=== PATIENT | female | born 1950 ===

== ENCOUNTER 2018-03-14 14:13 | Inpatient (IN) | payer MEDICARE, OTHER ==
[2018-03-14 14:13] VITALS: BMI 26.2
[2018-03-14] MEDS ORDERED: Sodium Chloride 0.9% 1,000 ML IV ONE (14:31)
[2018-03-14 14:45] LABS: BASO # 0.1 K/uL (0.0-0.2); BASO % 1.2 % (0.0-2.0); EOS # 0.1 K/uL (0.0-0.7); EOS % 2.6 % (0.0-4.0); HEMOGLOBIN 13.9 g/dL (11.0-16.0); LYMPH # 2.6 K/uL (1.0-4.3); LYMPH % 52.5 % (20.0-40.0); MEAN CELL VOLUME 92.1 fL (81.0-99.0); MEAN CORPUSCULAR HEMOGLOBIN 31.6 pg (27.0-31.0); MEAN CORPUSCULAR HGB CONC 34.3 g/dL (33.0-37.0); MEAN PLATELET VOLUME 7.8 fL (7.2-11.7); MONO # 0.6 K/uL (0.0-0.8); MONO % 11.5 % (0.0-10.0); NEUT # 1.6 K/uL (1.8-7.0); NEUT % 32.2 % (50.0-75.0); RBC 4.39 Mil/uL (3.80-5.20); WHITE BLOOD COUNT 4.9 K/uL (4.8-10.8)
--- NOTE | 2018-03-14 14:48 | C.PDOC ---
History Of Present Illness 68-year-old female, presents to the emergency department with complaints of dizziness and vomiting today. She denies any chest pain, fever, chills, shortness of breath. No other complaints at this time. Time Seen by Provider: 03/14/18 14:24 Chief Complaint (Nursing): Dizziness/Lightheaded History Per: Patient History/Exam Limitations: no limitations Current Symptoms Are (Timing): Still Present Seizure Or Post-ictal Symptoms: None Possible Causative Factor(s): Vertigo Severity: Mild Past Medical History Reviewed: Historical Data, Nursing Documentation, Vital Signs Vital Signs: Last Vital Signs Temp 97.6 F 03/14/18 17:04 Pulse 108 H 03/14/18 17:04 Resp 20 03/14/18 17:04 BP 137/87 03/14/18 17:04 Pulse Ox 98 03/14/18 17:04 - Medical History PMH: Gastritis, HTN Surgical History: Endoscopy Family History: States: No Known Family Hx - Social History Hx Alcohol Use: No Hx Substance Use: No - Immunization History Hx Tetanus Toxoid Vaccination: No Hx Influenza Vaccination: No Hx Pneumococcal Vaccination: No Review Of Systems Constitutional: Negative for: Fever, Chills Cardiovascular: Negative for: Palpitations Respiratory: Negative for: Shortness of Breath Gastrointestinal: Positive for: Vomiting. Negative for: Abdominal Pain Neurological: Positive for: Dizziness. Negative for: Weakness, Numbness, Headache Physical Exam - Physical Exam Appears: Non-toxic, No Acute Distress Skin: Normal Color, Warm, Dry, No Rash Head: Atraumatic, Normacephalic Eye(s): bilateral: Normal Inspection Nose: Normal Oral Mucosa: Moist Lips: Normal Appearing Neck: Normal ROM Cardiovascular: Rhythm Irregular Respiratory: Normal Breath Sounds Gastrointestinal/Abdominal: Soft, No Tenderness Back: Normal Inspection Extremity: Normal ROM, No Deformity, No Swelling Neurological/Psych: Oriented x3, Normal Speech Gait: Unable To Assess ED Course And Treatment - Laboratory Results Result Diagrams: 03/14/18 14:42 03/14/18 14:42 Lab Interpretation: No Acute Changes ECG: Interpreted By Me ECG Rhythm: Atrial Fibrillation Rate From EC O2 Sat by Pulse Oximetry: 100 Pulse Ox Interpretation: Normal (RA) Progress Note: Treated with IVF NSS, zofran. Treated with cardizem IV and drip Reassessment Condition: Improved - Physician Consult Information Physician Contacted: Radha Ramirez Outcome Of Conversation: admit Disposition Discussed With DrAdelaida: Radha Ramirez Doctor Will See Patient In The: Hospital - Disposition Disposition: HOSPITALIZED Disposition Time: 17:00 Condition: GOOD - POA Present On Arrival: None - Clinical Impression Clinical Impression: Dizziness, New onset a-fib - Scribe Statement The provider has reviewed the documentation as recorded by the Scribe (Laura Parker) All medical record entries made by the Scribe were at my direction and personally dictated by me. I have reviewed the chart and agree that the record accurately reflects my personal performance of the history, physical exam, medical decision making, and the department course for this patient. I have also personally directed, reviewed, and agree with the discharge instructions and disposition. Decision To Admit - Pt Status Changed To: Hospital Disposition Of: Inpatient - Admit Certification Admit to Inpatient:: After my assessment, the patient will require hospitalization for at least two midnights. This is because of the severity of symptoms shown, intensity of services needed, and/or the medical risk in this patient being treated as an outpatient. - InPatient: Physician Admission Certification: I certify that this patient requires 2 or more midnights of care for the following reason:: New Onset A-Fib - . Bed Request Type: Telemetry Admitting Physician: Radha Ramirez Patient Diagnosis: Dizziness, New onset a-fib
[2018-03-14 14:58] LABS: ALB/GLOB RATIO 1.4 (1.0-2.1); ALBUMIN 4.4 g/dL (3.5-5.0); ALT/SGPT 24 U/L (9-52); AST/SGOT 23 U/L (14-36); BLOOD UREA NITROGEN 14 mg/dL (7-17); CALCIUM 9.9 mg/dl (8.6-10.4); GFR AFRICAN-AMERICAN > 60; GFR NON-AFRICAN AMERICAN > 60; LIPASE 162 U/L (23-300)
[2018-03-14 15:09] LABS: CK-MB 1.08 ng/mL (0.0-3.38)
[2018-03-14] MEDS ORDERED: Sodium Chloride 0.9% 1,000 ML ONE (15:18)
--- NOTE | 2018-03-14 15:41 | RAD ---
Date of service: 03/14/2018 PROCEDURE: CHEST RADIOGRAPH, 1 VIEW HISTORY: SOB COMPARISON: None available. FINDINGS: LUNGS: The lungs are well inflated and clear. PLEURA: No pneumothorax or pleural fluid seen. CARDIOVASCULAR: Normal. OSSEOUS STRUCTURES: No significant abnormalities. VISUALIZED UPPER ABDOMEN: Normal. OTHER FINDINGS: None. IMPRESSION: No active pulmonary disease.
--- NOTE | 2018-03-14 17:43 | CP.PCM.HP ---
History of Present Illness - History of Present Illness History of Present Illness: CC: Dizziness HPI: Pt is a 68 year old female well know to med with essential Htn and pre diabetes who presents to the ER co dizziness and vomiting. Pt reports waking up this AM feeling well, after breakfast felt dizzy, and feeling of rooms spinning. This was followed by some vomiting. Pt denied having any palpitation at the time or sob. She was brought to ER for eval where she was found to have new onset afib. She denies any prior history of CAD, a fib or any other medical history. Pt has seen Dr. Morales for pre op clearance before GI bipsy and no issues found at the time. Pt co feeling some right leg cramps and her stomach feeling "uneasy", otherwise feeling ok. 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 Smoke Neg. ETOH Neg. Drugs Allergies: NKDA Medications: Zantac 300mg 1 BID Losartan 100mg 1 QD Vitamin d 50,000 units 1 cap weekly Present on Admission - Present on Admission Any Indicators Present on Admission: No Review of Systems - Constitutional Constitutional: absent: Anorexia, Chills, Fatigue, Fever, Headache, Malaise - Cardiovascular Cardiovascular: absent: Chest Pain, Dyspnea on Exertion - Respiratory Respiratory: absent: Cough, Dyspnea, Hemoptysis, Wheezing - Gastrointestinal Gastrointestinal: Nausea, Vomiting. absent: Abdominal Pain, Cramping - Genitourinary Genitourinary: absent: Change in Urinary Stream Past Patient History - Infectious Disease Hx of Infectious Diseases: None - Past Medical History & Family History Past Medical History?: Yes - Past Social History Smoking Status: Never Smoked - CARDIAC Hx Hypertension: Yes - PULMONARY Hx Respiratory Disorders: No - NEUROLOGICAL Hx Neurological Disorder: No - HEENT Hx HEENT Problems: No - RENAL Hx Chronic Kidney Disease: No - ENDOCRINE/METABOLIC Hx Endocrine Disorders: No - HEMATOLOGICAL/ONCOLOGICAL Hx Blood Disorders: No - INTEGUMENTARY Hx Dermatological Problems: No - MUSCULOSKELETAL/RHEUMATOLOGICAL Hx Falls: No - GASTROINTESTINAL Hx Gastritis: Yes - GENITOURINARY/GYNECOLOGICAL Hx Genitourinary Disorders: Yes Other/Comment: UTERING FIBROIDS - PSYCHIATRIC Hx Substance Use: No - SURGICAL HISTORY Hx Surgeries: Yes Other/Comment: MYOMECTOMY - ANESTHESIA Hx Anesthesia: Yes Hx Anesthesia Reactions: No Hx Malignant Hyperthermia: No Meds Allergies/Adverse Reactions: Allergies Allergy/AdvReac Type Severity Reaction Status Date / Time No Known Allergies Allergy Verified 09/04/16 21:38 Physical Exam - Constitutional Appears: Non-toxic, No Acute Distress - Eye Exam Eye Exam: EOMI, Normal appearance, PERRL - ENT Exam ENT Exam: Mucous Membranes Moist - Neck Exam Neck exam: Positive for: Normal Inspection - Respiratory Exam Respiratory Exam: Clear to Auscultation Bilateral, NORMAL BREATHING PATTERN. absent: Wheezes, Respiratory Distress - Cardiovascular Exam Cardiovascular Exam: REGULAR RHYTHM, RRR, +S1, +S2. absent: JVD - GI/Abdominal Exam GI & Abdominal Exam: Normal Bowel Sounds, Soft. absent: Distended - Neurological Exam Neurological exam: Oriented x3 - Skin Skin Exam: Dry, Normal Color, Warm Results - Vital Signs Recent Vital Signs: Last Vital Signs Temp 97.6 F 03/14/18 17:04 Pulse 108 H 03/14/18 17:04 Resp 20 03/14/18 17:04 BP 137/87 03/14/18 17:04 Pulse Ox 98 03/14/18 17:04 - Labs Result Diagrams: 03/14/18 14:42 03/14/18 14:42 Labs: Laboratory Results - last 24 hr 03/14/18 03/14/18 14:42 14:42 WBC 4.9 RBC 4.39 Hgb 13.9 Hct 40.4 MCV 92.1 MCH 31.6 H MCHC 34.3 RDW 13.0 Plt Count 290 MPV 7.8 Neut % (Auto) 32.2 L Lymph % (Auto) 52.5 H Clarke % (Auto) 11.5 H Eos % (Auto) 2.6 Baso % (Auto) 1.2 Neut # (Auto) 1.6 L Lymph # (Auto) 2.6 Clarke # (Auto) 0.6 Eos # (Auto) 0.1 Baso # (Auto) 0.1 Sodium 141 Potassium 4.1 Chloride 103 Carbon Dioxide 26 Anion Gap 16 BUN 14 Creatinine 0.8 Est GFR ( Amer) > 60 Est GFR (Non-Af Amer) > 60 Random Glucose 114 H Calcium 9.9 Total Bilirubin 0.5 AST 23 ALT 24 Alkaline Phosphatase 79 CK-MB (Mass) 1.08 Troponin I < 0.0120 Total Protein 7.6 Albumin 4.4 Globulin 3.2 Albumin/Globulin Ratio 1.4 Lipase 162 Assessment & Plan - Assessment and Plan (Free Text) Assessment: 68 year old with new onset a fib. NSR right now. Also some component of vertigo today ho HTN admit to tele anticoagulate until can access LV function HYACINTH no no cva no ho chf echo and cardiology eval ordered will get THS in AM prior tsh in my office negative No ethoh
[2018-03-14] MEDS ORDERED: Sodium Chloride 0.45% 1,000 ML IV SCH (19:00)
[2018-03-14] MEDS: Enoxaparin 80 mg Syringe SC SCH (21:14)
[2018-03-15 04:48] LABS: SQUAMOUS EPITHIAL 1 /hpf (0-5); URINE BILIRUBIN NEGATIVE (NEGATIVE); URINE BLOOD NEGATIVE (NEGATIVE); URINE CLARITY Clear (Clear); URINE COLOR Yellow (YELLOW); URINE GLUCOSE (UA) NORMAL (Normal); URINE LEUKOCYTE ESTERASE TRACE Leu/uL (Negative); URINE PROTEIN NEGATIVE (NEGATIVE); URINE UROBILINOGEN NORMAL mg/dL (0.2-1.0)
[2018-03-15 05:02] LABS: CK-MB 0.99 ng/mL (0.0-3.38)
[2018-03-15 05:04] LABS: BLOOD UREA NITROGEN 11 mg/dL (7-17); GFR AFRICAN-AMERICAN > 60; GFR NON-AFRICAN AMERICAN > 60
[2018-03-15] MEDS: Enoxaparin 80 mg Syringe SC SCH ×2 (09:25→21:27)
--- NOTE | 2018-03-15 10:02 | CP.PCM.CON ---
History of Present Illness - History of Present Illness History of Present Illness: The pt is a 68 year old woman, with HTN, prediabetes. For a pre-op clearance for a pancreatic cyst, pt had a normal nuclear stress test in 2014. pt has had palpitations, and an outpatient showed apbs in 2014. The pt had an ecg in 2017 in the office, with nsr, grouped beating, and possible Mobitz. The pt reported nausea, vomiting and dizziness, and came to er where ecg demonstrated rapid atrial fibrillation, With IV cadezem, she converted to nsr, and bp was now low, getting IV NS. Pt feels well today. TNI are negative, no echg ischemic changes and cxr is clear. Review of Systems - Review of Systems All systems: reviewed and no additional remarkable complaints except (as above.) Past Patient History - Infectious Disease Hx of Infectious Diseases: None - Past Medical History & Family History Past Medical History?: Yes - Past Social History Smoking Status: Never Smoked - CARDIAC Hx Hypertension: Yes - PULMONARY Hx Respiratory Disorders: No - NEUROLOGICAL Hx Neurological Disorder: No - HEENT Hx HEENT Problems: No - RENAL Hx Chronic Kidney Disease: No - ENDOCRINE/METABOLIC Hx Endocrine Disorders: No - HEMATOLOGICAL/ONCOLOGICAL Hx Blood Disorders: No - INTEGUMENTARY Hx Dermatological Problems: No - MUSCULOSKELETAL/RHEUMATOLOGICAL Hx Falls: No - GASTROINTESTINAL Hx Gastritis: Yes - GENITOURINARY/GYNECOLOGICAL Hx Genitourinary Disorders: Yes Other/Comment: UTERING FIBROIDS - PSYCHIATRIC Hx Substance Use: No - SURGICAL HISTORY Hx Surgeries: Yes Other/Comment: MYOMECTOMY - ANESTHESIA Hx Anesthesia: Yes Hx Anesthesia Reactions: No Hx Malignant Hyperthermia: No Meds Allergies/Adverse Reactions: Allergies Allergy/AdvReac Type Severity Reaction Status Date / Time No Known Allergies Allergy Verified 09/04/16 21:38 - Medications Medications: Current Medications Enoxaparin Sodium (Lovenox) 75 mg SC Q12H [facility] Last Admin: 03/15/18 09:25 Dose: 75 mg Famotidine (Pepcid) 40 mg PO BID [facility] Last Admin: 03/15/18 09:25 Dose: 40 mg Diltiazem HCl 125 mg/ Sodium (Chloride) 125 mls @ 5 mls/hr IV .Q24H [facility] PRN Reason: 5 MG/HR Last Admin: 03/14/18 16:27 Dose: 5 mls/hr Sodium Chloride (Sodium Chloride 0.45%) 1,000 mls @ 50 mls/hr IV .Q20H [facility] Stop: 03/15/18 14:59 Last Admin: 03/14/18 19:30 Dose: 50 mls/hr Losartan Potassium (Cozaar) 100 mg PO DAILY [facility] Last Admin: 03/15/18 09:25 Dose: 100 mg Physical Exam - Constitutional Appears: Well - Head Exam Head Exam: ATRAUMATIC - Eye Exam Eye Exam: EOMI - ENT Exam ENT Exam: Mucous Membranes Moist - Neck Exam Neck exam: Positive for: Full Rom - Respiratory Exam Respiratory Exam: Chest Wall Tenderness, Clear to Auscultation Bilateral - Cardiovascular Exam Cardiovascular Exam: REGULAR RHYTHM - GI/Abdominal Exam GI & Abdominal Exam: Normal Bowel Sounds - Exam External exam: NORMAL EXTERNAL EXAM Speculum exam: NORMAL SPECULUM EXAM - Extremities Exam Extremities exam: Positive for: normal inspection Results - Vital Signs Recent Vital Signs: Last Vital Signs Temp 98.3 F 03/15/18 07:45 Pulse 52 L 03/15/18 07:45 Resp 18 03/15/18 07:45 BP 104/63 03/15/18 07:45 Pulse Ox 97 03/15/18 07:45 - Labs Result Diagrams: 03/14/18 14:42 03/15/18 04:27 Labs: Laboratory Results - last 24 hr 03/14/18 03/14/18 03/15/18 14:42 14:42 04:27 WBC 4.9 RBC 4.39 Hgb 13.9 Hct 40.4 MCV 92.1 MCH 31.6 H MCHC 34.3 RDW 13.0 Plt Count 290 MPV 7.8 Neut % (Auto) 32.2 L Lymph % (Auto) 52.5 H Barry % (Auto) 11.5 H Eos % (Auto) 2.6 Baso % (Auto) 1.2 Neut # (Auto) 1.6 L Lymph # (Auto) 2.6 Barry # (Auto) 0.6 Eos # (Auto) 0.1 Baso # (Auto) 0.1 Sodium 141 Potassium 4.1 Chloride 103 Carbon Dioxide 26 Anion Gap 16 BUN 14 Creatinine 0.8 Est GFR ( Amer) > 60 Est GFR (Non-Af Amer) > 60 Random Glucose 114 H Calcium 9.9 Total Bilirubin 0.5 AST 23 ALT 24 Alkaline Phosphatase 79 Total Creatine Kinase CK-MB (Mass) 1.08 Troponin I < 0.0120 Total Protein 7.6 Albumin 4.4 Globulin 3.2 Albumin/Globulin Ratio 1.4 Lipase 162 TSH 3rd Generation Urine Color Yellow Urine Clarity Clear Urine pH 6.0 Ur Specific [place] 1.011 Urine Protein Negative Urine Glucose (UA) Normal Urine Ketones Negative Urine Blood Negative Urine Nitrate Negative Urine Bilirubin Negative Urine Urobilinogen Normal Ur Leukocyte Esterase Trace Urine WBC (Auto) 8 H Urine RBC (Auto) < 1 Ur Squamous Epith Cells 1 03/15/18 04:27 WBC RBC Hgb Hct MCV MCH MCHC RDW Plt Count MPV Neut % (Auto) Lymph % (Auto) Barry % (Auto) Eos % (Auto) Baso % (Auto) Neut # (Auto) Lymph # (Auto) Barry # (Auto) Eos # (Auto) Baso # (Auto) Sodium 140 Potassium 4.1 Chloride 106 Carbon Dioxide 26 Anion Gap 12 BUN 11 Creatinine 0.8 Est GFR ( Amer) > 60 Est GFR (Non-Af Amer) > 60 Random Glucose 114 H Calcium 9.0 Total Bilirubin AST ALT Alkaline Phosphatase Total Creatine Kinase 174 H CK-MB (Mass) 0.99 Troponin I 0.0210 Total Protein Albumin Globulin Albumin/Globulin Ratio Lipase TSH 3rd Generation 2.43 Urine Color Urine Clarity Urine pH Ur Specific [place] Urine Protein Urine Glucose (UA) Urine Ketones Urine Blood Urine Nitrate Urine Bilirubin Urine Urobilinogen Ur Leukocyte Esterase Urine WBC (Auto) Urine RBC (Auto) Ur Squamous Epith Cells - EKG Data EKG Interpreted by: Myself EKG shows normal: Sinus rhythm Rate: Normal Assessment & Plan - Assessment and Plan (Free Text) Assessment: 1. Stephanie, first documentation: pt will need anticoagulation. Will advise 2. Before recommending anti arrhythmic, i wishe to consult EP as pt had carlos arrhythmias and now ECG tele is s carlos. 3. TFT.
--- NOTE | 2018-03-15 11:02 | CARD ---
APPROVED REPORT Date of service: 03/14/2018 EKG Measurement Heart [id number] <Conclusion> Atrial fibrillation with rapid ventricular response with premature ventricular or aberrantly conducted complexes Nonspecific T wave abnormality Abnormal ECG
[2018-03-15] MEDS: Sodium Chloride 0.45% 1,000 ML IV SCH (17:20)
--- NOTE | 2018-03-15 18:21 | CP.PCM.PN ---
Subjective - Date & Time of Evaluation Date of Evaluation: 03/15/18 Time of Evaluation: 18:23 - Subjective Subjective: Pt states she feels a lot better today. Denies nausea or vomiting. Eating well now. Objective - Vital Signs/Intake and Output Vital Signs (last 24 hours): Temp Pulse Resp BP Pulse Ox 98.1 F 55 L 18 110/60 96 03/15/18 15:00 03/15/18 16:02 03/15/18 15:00 03/15/18 15:00 03/15/18 15:00 Intake and Output: 03/15/18 03/15/18 06:59 18:59 Intake Total 810 Output Total 575 Balance 235 - Medications Medications: Current Medications Enoxaparin Sodium (Lovenox) 75 mg SC Q12H [facility] Last Admin: 03/15/18 09:25 Dose: 75 mg Famotidine (Pepcid) 40 mg PO BID [facility] Last Admin: 03/15/18 17:20 Dose: 40 mg Diltiazem HCl 125 mg/ Sodium (Chloride) 125 mls @ 5 mls/hr IV .Q24H [facility] PRN Reason: 5 MG/HR Last Admin: 03/14/18 16:27 Dose: 5 mls/hr Sodium Chloride (Sodium Chloride 0.45%) 1,000 mls @ 50 mls/hr IV .Q20H [facility] Stop: 03/17/18 17:01 Last Admin: 03/15/18 17:20 Dose: 50 mls/hr Losartan Potassium (Cozaar) 100 mg PO DAILY [facility] Last Admin: 03/15/18 09:25 Dose: 100 mg - Labs Labs: 03/14/18 14:42 03/15/18 04:27 - Constitutional Appears: Well, Non-toxic - Eye Exam Eye Exam: Normal appearance - ENT Exam ENT Exam: Mucous Membranes Moist - Respiratory Exam Respiratory Exam: NORMAL BREATHING PATTERN - Cardiovascular Exam Cardiovascular Exam: REGULAR RHYTHM, RRR, +S1, +S2. absent: JVD - GI/Abdominal Exam GI & Abdominal Exam: Soft, Normal Bowel Sounds. absent: Tenderness - Extremities Exam Extremities Exam: absent: Joint Swelling Assessment and Plan - Assessment and Plan (Free Text) Assessment: magdalene gonzalez now reviewed cardio note I need to know if EP study will be done now or oupt bp stable pre diabetes
[2018-03-16 00:50] VITALS: RESP 20
[2018-03-16 08:02] VITALS: BP 131/82; TEMP 97.6; O2SAT 97
[2018-03-16 08:13] VITALS: PULSE 61
[2018-03-16 08:47] LABS: FREE T4 1.09 ng/dL (0.78-2.19)
[2018-03-16] MEDS: Enoxaparin 80 mg Syringe SC SCH (10:06)
--- NOTE | 2018-03-16 10:07 | CP.PCM.PN ---
Subjective - Date & Time of Evaluation Date of Evaluation: 03/16/18 Time of Evaluation: 10:06 - Subjective Subjective: feels well Objective - Vital Signs/Intake and Output Vital Signs (last 24 hours): Temp Pulse Resp BP Pulse Ox 97.6 F 61 20 131/82 97 03/16/18 07:40 03/16/18 08:10 03/16/18 07:40 03/16/18 07:40 03/16/18 07:40 - Medications Medications: Current Medications Enoxaparin Sodium (Lovenox) 75 mg SC Q12H [facility] Last Admin: 03/15/18 21:27 Dose: 75 mg Famotidine (Pepcid) 40 mg PO BID [facility] Last Admin: 03/15/18 17:20 Dose: 40 mg Diltiazem HCl 125 mg/ Sodium (Chloride) 125 mls @ 5 mls/hr IV .Q24H [facility] PRN Reason: 5 MG/HR Last Admin: 03/14/18 16:27 Dose: 5 mls/hr Sodium Chloride (Sodium Chloride 0.45%) 1,000 mls @ 50 mls/hr IV .Q20H [facility] Stop: 03/17/18 17:01 Last Admin: 03/15/18 17:20 Dose: 50 mls/hr Losartan Potassium (Cozaar) 100 mg PO DAILY [facility] Last Admin: 03/15/18 09:25 Dose: 100 mg - Labs Labs: 03/14/18 14:42 03/15/18 04:27 - Head Exam Head Exam: ATRAUMATIC - Eye Exam Eye Exam: EOMI - ENT Exam ENT Exam: Mucous Membranes Moist - Neck Exam Neck Exam: Full ROM - Respiratory Exam Respiratory Exam: Clear to Ausculation Bilateral - Cardiovascular Exam Cardiovascular Exam: REGULAR RHYTHM - GI/Abdominal Exam GI & Abdominal Exam: Normal Bowel Sounds - Exam External exam: NORMAL EXTERNAL EXAM - Extremities Exam Extremities Exam: Normal Inspection - Back Exam Back Exam: NORMAL INSPECTION - Neurological Exam Neurological Exam: Alert, Awake, Normal Gait - Psychiatric Exam Psychiatric exam: Normal Affect Assessment and Plan - Assessment and Plan (Free Text) Assessment: 1. Echo is normal. 2> Bp is better 3. A review of previous holter.ecg demonstrates sinus exit block. 4. Discussed with Dr Drummond: Flecainide recommended with necessary beta blockd. 5. Eliquis 5 bid 6. F/U if office margarito for assessment.
[2018-03-16] MEDS: Sodium Chloride 0.45% 1,000 ML IV SCH ×2 (10:08→12:25)
--- NOTE | 2018-03-16 11:02 | CARD ---
APPROVED REPORT Date of service: 03/15/2018 EXAM: Two-dimensional and M-mode echocardiogram with Doppler and color Doppler. Other Information Quality : GoodRhythm : INDICATION Dizziness and Vertigo Atrial Fibrillation RISK FACTORS Hypertension Hyperlipidemia 2D DIMENSIONS IVSd0.7 (0.7-1.1cm)LVDd4.4 (3.9-5.9cm) PWd0.8 (0.7-1.1cm)LVDs2.5 (2.5-4.0cm) FS (%) 42.8 %LVEF (%)74.1 (>50%) M-Mode DIMENSIONS RVDd2.31 (2.1-3.2cm)Left Atrium (MM)2.78 (2.5-4.0cm) IVSd0.94 (0.7-1.1cm)Aortic Root3.15 (2.2-3.7cm) LVDd4.30 (4.0-5.6cm)Aortic Cusp Exc.2.18 (1.5-2.0cm) PWd0.85 (0.7-1.1cm)FS (%) 51 % LVDs2.12 (2.0-3.8cm)LVEF (%)82 (>50%) Mitral Valve MV E Kgtakfrg40.8cm/sMV A Sdddqfbs61.8cm/sE/A ratio1.2 TDI E/Lateral E'0.0E/Medial E'0.0 Tricuspid Valve TR Peak [id number]/sTR Peak [id number] LEFT VENTRICLE The left ventricle is normal size. There is normal left ventricular wall thickness. The Ejection Fraction is >70%. There is normal LV segmental wall motion. The left ventricular diastolic function is normal. RIGHT VENTRICLE The right ventricle is normal size. The right ventricular systolic function is normal. ATRIA The left atrium size is normal. The right atrium size is normal. The interatrial septum is intact with no evidence for an atrial septal defect. AORTIC VALVE The aortic valve is normal in structure. No aortic regurgitation is present. MITRAL VALVE The mitral valve is normal in structure. There is no mitral valve regurgitation noted. TRICUSPID VALVE The tricuspid valve is normal in structure. There is mild tricuspid regurgitation. Right ventricular systolic pressure is estimated at 28 mmHg. There is no pulmonary hypertension. PULMONIC VALVE The pulmonary valve is normal in structure. There is mild pulmonic valvular regurgitation. GREAT VESSELS The aortic root is normal in size. The IVC is normal in size and collapses >50% with inspiration. PERICARDIAL EFFUSION There is no pericardial effusion. <Conclusion> The left ventricle is normal size. The Ejection Fraction is >70%. The left ventricular diastolic function is normal. There is mild tricuspid regurgitation. Right ventricular systolic pressure is estimated at 28 mmHg. There is no pulmonary hypertension. The aortic root is normal in size. There is no pericardial effusion.
--- NOTE | 2018-03-16 16:37 | CP.PCM.PN ---
Subjective - Date & Time of Evaluation Date of Evaluation: 03/16/18 Time of Evaluation: 16:36 - Subjective Subjective: PT D/C HOME PER DR. TAPIA AND TO F/U WITH HER IN THE OFFICE ON MONDAY. CLEARED BY DR. VALENTIN. ALL RX DISCUSSED WITH DR. TAPIA AND SENT TO PT'S PHARMACY. NO FURTHER ORDERS. -SEE DR. TAPIA IN HER OFFICE ON MONDAY PER HER REQUEST. -FOLLOW UP WITH DR. VALENTIN IN THE OFFICE WITHIN 1-2 WEEKS. -PER DR. VALENTIN'S AND DR. TAPIA'S RECOMMENDATIONS, THE FOLLOWING MEDICATIONS HAVE BEEN PRESCRIBED TO YOU: 1) LOSARTAN 50 MG--FOR YOUR HEART---TAKE 1 TABLET BY MOUTH ONCE A DAY. 2) METOPROLOL 25 MG--FOR YOUR HEART---TAKE 1 TABLET BY MOUTH ONCE A DAY. 3) FLECANIDE 50 MG--THIS IS FOR YOUR HEART---TAKE 1 TABLET BY MOUTH TWICE A DAY (MORNING AND EVENING) 4) ELIQUIS 5 MG ---THIS IS FOR YOUR HEART---TAKE 1 TABLET BY MOUTH TWICE A DAY (MORNING AND EVENING) -FOR FURTHER QUESTIONS OR CONCERNS, CONTACT DR. TAPIA. Objective - Vital Signs/Intake and Output Vital Signs (last 24 hours): Temp Pulse Resp BP Pulse Ox 97.6 F 61 20 131/82 97 03/16/18 07:40 03/16/18 08:10 03/16/18 07:40 03/16/18 07:40 03/16/18 07:40 - Medications Medications: Current Medications Apixaban (Eliquis) 5 mg PO BID [facility] Famotidine (Pepcid) 40 mg PO BID [facility] Last Admin: 03/16/18 10:05 Dose: 40 mg Diltiazem HCl 125 mg/ Sodium (Chloride) 125 mls @ 5 mls/hr IV .Q24H [facility] PRN Reason: 5 MG/HR Last Admin: 03/14/18 16:27 Dose: 5 mls/hr Sodium Chloride (Sodium Chloride 0.45%) 1,000 mls @ 50 mls/hr IV .Q20H [facility] Stop: 03/17/18 17:01 Last Admin: 03/16/18 12:25 Dose: Not Given Losartan Potassium (Cozaar) 50 mg PO DAILY [facility] Metoprolol Succinate (Toprol Xl) 25 mg PO DAILY [facility] - Labs Labs: 03/14/18 14:42 03/15/18 04:27
[2018-03-17] MEDS ORDERED: Metoprolol Succinate 25 mg XL Tab PO SCH (10:00)
== END 2018-03-16 17:17 | disposition home or self-care (01) | DRG 310 ==
LOC: C.ER 14:13 → C.9E 15:14 → C.6T 16:05
PROVIDERS: ADMIT Internal Medicine; ATTEND Internal Medicine
DX: I48.91 Unspecified atrial fibrillation (principal); I10 Essential (primary) hypertension; E78.5 Hyperlipidemia, unspecified; R73.03 Prediabetes; M19.90 Unspecified osteoarthritis, unspecified site

== ENCOUNTER 2018-03-19 03:43 | Emergency (ER) | payer MEDICARE, OTHER ==
[2018-03-19 03:43] VITALS: BMI 26.2
[2018-03-19 04:01] VITALS: TEMP 98.9
[2018-03-19 04:15] LABS: BASO % 0.7 % (0.0-2.0); EOS # 0.1 K/uL (0.0-0.7); EOS % 1.7 % (0.0-4.0); HEMOGLOBIN 13.2 g/dL (11.0-16.0); LYMPH # 2.1 K/uL (1.0-4.3); LYMPH % 30.7 % (20.0-40.0); MEAN CELL VOLUME 91.9 fL (81.0-99.0); MEAN CORPUSCULAR HEMOGLOBIN 31.1 pg (27.0-31.0); MEAN CORPUSCULAR HGB CONC 33.9 g/dL (33.0-37.0); MEAN PLATELET VOLUME 8.8 fL (7.2-11.7); MONO # 0.5 K/uL (0.0-0.8); MONO % 7.7 % (0.0-10.0); NEUT # 4.1 K/uL (1.8-7.0); NEUT % 59.2 % (50.0-75.0); NRBC % 0.1 % (0.0-2.0); RBC 4.23 Mil/uL (3.80-5.20); RED CELL DISTRIBUTION WIDTH 12.9 % (11.5-14.5); WHITE BLOOD COUNT 6.9 K/uL (4.8-10.8)
[2018-03-19 04:49] LABS: ALB/GLOB RATIO 1.2 (1.0-2.1); ALBUMIN 4.4 g/dL (3.5-5.0); ALT/SGPT 29 U/L (9-52); AST/SGOT 69 U/L (14-36); B-TYPE NATRIURETIC PEPTIDE 143 pg/mL (0-900); BLOOD UREA NITROGEN 8 mg/dL (7-17); GFR NON-AFRICAN AMERICAN > 60; LIPASE 108 U/L (23-300)
[2018-03-19] MEDS ORDERED: Magnesium Citrate Oral SOL (300 ml) PO ONE (04:55)
[2018-03-19] MEDS ORDERED: Magnesium Citrate Oral SOL (300 ml) ONE (05:00)
--- NOTE | 2018-03-19 05:03 | C.PDOC ---
History Of Present Illness 68 y/o female presents to the ED complaining of constipation for six days. As per patient, she was seen and admitted in the ED three days ago but did not mention BM issue to physician during her last visit. She has a Hx of GERD, HTN, Arrythmia, pancreatic cyst, arthritis and hysterecomy. The patient denies any abdominal pain, nausea or vomiting. Time Seen by Provider: 03/19/18 04:00 Chief Complaint (Nursing): GI Problem History Per: Patient History/Exam Limitations: no limitations Onset/Duration Of Symptoms: Days Current Symptoms Are (Timing): Still Present Associated Symptoms: denies: Fever, Nausea, Vomiting, Diarrhea Recent travel outside of the [place]: No Past Medical History Reviewed: Historical Data, Nursing Documentation, Vital Signs Vital Signs: Last Vital Signs Temp 98.9 F 03/19/18 03:56 Pulse 42 L 03/19/18 05:07 Resp 14 03/19/18 05:07 BP 107/62 03/19/18 05:07 Pulse Ox 97 03/19/18 05:33 - Medical History PMH: Gastritis, HTN Denies: Chronic Kidney Disease Surgical History: Endoscopy Other Surgeries: myomectomy Family History: States: Unknown Family Hx - Social History Hx Alcohol Use: No Hx Substance Use: No - Immunization History Hx Tetanus Toxoid Vaccination: No Hx Influenza Vaccination: No Hx Pneumococcal Vaccination: No Review Of Systems Except As Marked, All Systems Reviewed And Found Negative. Constitutional: Negative for: Fever, Weakness, Malaise Eyes: Negative for: Pain, Vision Change, Conjunctivae Inflammation ENT: Negative for: Ear Pain, Ear Discharge, Nose Congestion Cardiovascular: Negative for: Chest Pain, Palpitations, Orthopnea, Paroxysmal Noc. Dyspnea Respiratory: Negative for: Cough, Pleuritic Pain Gastrointestinal: Positive for: Constipation, Other (constipation). Negative for: Nausea, Vomiting, Abdominal Pain, Diarrhea Neurological: Negative for: Weakness Psych: Negative for: Anxiety Physical Exam - Physical Exam Appears: Well, Non-toxic, No Acute Distress Skin: Normal Color, Warm, Dry Head: Atraumatic, Normacephalic Eye(s): bilateral: Normal Inspection, PERRL, EOMI Oral Mucosa: Moist Gingiva: Normal Appearing Neck: Normal Chest: Symmetrical Cardiovascular: Rhythm Regular, No Murmur Respiratory: Normal Breath Sounds, No Rales, No Rhonchi, No Wheezing Gastrointestinal/Abdominal: Normal Exam, No Bowel Sounds, No Tenderness, No Distention Extremity: Bilateral: Atraumatic, Normal Color And Temperature, Normal ROM Neurological/Psych: Oriented x3, Normal Speech ED Course And Treatment - Laboratory Results Result Diagrams: 03/19/18 04:08 03/19/18 04:08 ECG: Interpreted By Me ECG Rhythm: Sinus Bradycardia Interpretation Of ECG: No ischemic changes. Vent rate 44 bpm. VA - 152 ms. QRS - 92. QT - 474. QTc - 405 O2 Sat by Pulse Oximetry: 97 (RA) Pulse Ox Interpretation: Normal Medical Decision Making Medical Decision Making: Plan: 68 y/o with constipation for 6 days Impression: --EKG --B-Ttype natriuretic --CMP --Lipase --Troponin I --CBC --PTT --PT --Chest X-Ray --Magnesium Citrate 300 ml PO --UA labs unremarkable. Pt desire lbe given mag citrate here and lactulose as otput . told to see her pmd today. Disposition Counseled Patient/Family Regarding: Diagnosis - Disposition Referrals: [facility] [place] [Outside] [facility] [Outside] [facility] [Outside] Disposition: HOME/ ROUTINE Disposition Time: 05:03 Condition: GOOD Additional Instructions: return if symptoms worsen Prescriptions: Lactulose 20 gm PO BID 5 Days #250 solution Forms: School Admissions ([place]) - Clinical Impression Clinical Impression: Constipation, Gas pain - PA / LAY OUT FORMER / Resident Statement MD/DO has reviewed & agrees with the documentation as recorded. - Scribe Statement The provider has reviewed the documentation as recorded by the Scribe (Lara Blas) All medical record entries made by the Scribe were at my direction and personally dictated by me. I have reviewed the chart and agree that the record accurately reflects my personal performance of the history, physical exam, medical decision making, and the department course for this patient. I have also personally directed, reviewed, and agree with the discharge instructions and disposition.
[2018-03-19 05:12] LABS: INR 1.3; PROTHROMBIN TIME 14.7 SECONDS (9.7-12.2)
[2018-03-19 05:15] VITALS: BP 107/62; PULSE 42; RESP 14
[2018-03-19 05:15] LABS: URINE BILIRUBIN NEGATIVE (NEGATIVE); URINE BLOOD NEGATIVE (NEGATIVE); URINE CLARITY Clear (Clear); URINE COLOR Straw (YELLOW); URINE GLUCOSE (UA) NORMAL (Normal); URINE LEUKOCYTE ESTERASE NEG Leu/uL (Negative); URINE PROTEIN NEGATIVE (NEGATIVE); URINE UROBILINOGEN NORMAL mg/dL (0.2-1.0)
[2018-03-19 05:23] VITALS: O2SAT 97
--- NOTE | 2018-03-19 12:03 | RAD ---
Chest x-ray two views History: Chest pain. Comparison: 03/14/2018 Findings: Persistent patchy increased markings at the left costophrenic angle with a somewhat nodular density at that level. Clinical correlation. Mild venous congestion. Right hilar prominence. Cardiomegaly. Degenerative changes in the spine and shoulders. Biapical pleural thickening with upper lobe granulomatous changes. Impression: Persistent patchy increased markings at the left costophrenic angle with a somewhat nodular density at that level. Clinical correlation. Mild venous congestion. Right hilar prominence. Cardiomegaly. Degenerative changes in the spine and shoulders. Biapical pleural thickening with upper lobe granulomatous changes.
--- NOTE | 2018-03-20 17:41 | CARD ---
APPROVED REPORT Date of service: 03/19/2018 EKG Measurement Heart [id number] <Conclusion> Marked sinus bradycardia with marked sinus arrhythmia Abnormal ECG
== END 2018-03-19 05:16 | disposition home or self-care (01) ==
LOC: C.ER 03:43
DX: K59.00 Constipation, unspecified (principal); R14.1 Gas pain

== ENCOUNTER 2018-12-13 10:00 | Outpatient (CLI) | payer MEDICARE, OTHER | END 2018-12-13 10:01 | disposition home or self-care (01) | LOC: C.MRIC 10:00 | DX: K86.2 Cyst of pancreas (principal) ==